=== PATIENT | male | born 2000 | race Caucasian/White ===

== ENCOUNTER 2023-08-20 20:04 | Emergency (ER) | payer OTHER, SELFPAY ==
[2023-08-20 20:35] VITALS: BP 120/78; PULSE 100; RESP 18; TEMP 36.1; O2SAT 98
--- NOTE | 2023-08-20 23:09 | ED_ITS ---
HPI - General Adult General Chief complaint: Unspecified Complaint, Adult Stated complaint: Faint, limbs tingling Time Seen by Provider: 08/20/23 23:02 History of Present Illness HPI narrative: 90 minutes ago, arms and legs went asleep. Tingle and odd sensation. felt like was going to pass out, buy not-lasted 90 minutes. had same thing happen yesterday. also reports having a headache for several days. felt like low blood pressure, but not Mild panic attack symptoms but think its just that 23-year-old young man presenting to the emergency department with concern of hot sensation in arms and legs that occurred around a couple of hours prior to this interview. Lasted about 90 minutes. He felt tingly and odd. This also occurred yesterday. Has had a little headache for a couple of days. He thinks what he is experiencing is similar to some mild panic attack symptoms in suspects that is the same but just concerned. Maybe lightheaded. No fever. No rashes. No new stressors. No chest pain or shortness of breath. Symptoms have mostly resolved now. There was no focal weakness. No visual change. No sense of palpitations/irregular heartbeat. No family history of arrhythmia is noted or sudden cardiac . Does have a history of asthma. Related Data Home Medications Medication Instructions Recorded Confirmed fluticasone 100 mcg-salmeterol 50 1 inh inhalation Q12H 08/30/22 08/30/22 mcg/dose blistr powdr for inhalation (Advair Diskus) Previous Rx's Medication Instructions Recorded albuterol sulfate 90 mcg/actuation 2 puff inhalation Q4-6H PRN 08/30/22 aerosol inhaler shortness of breath or wheezing #8.5 grams fluticasone 100 mcg-salmeterol 50 1 inh inhalation BID #60 ea 08/30/22 mcg/dose blistr powdr for inhalation (Advair Diskus) fluticasone propionate 110 2 puff inhalation BID #12 grams 08/30/22 mcg/actuation HFA aerosol inhaler (Flovent HFA) Allergies Allergy/AdvReac Type Severity Reaction Status Date / Time No Known Drug Allergies Allergy Verified 08/30/22 18:04 Review of Systems Status of ROS: Reports: 6 or more systems reviewed and unremarkable except as noted in History and below [facility] Medical History Asthma ?J45.909 - Unspecified asthma, uncomplicated (ICD-10) Social History Smoking Status: Light tobacco smoker Exam Narrative: Exam Narrative: Well-nourished. Very pleasant, personable. Pretty calm. Skin is warm and dry. Sensation appears to be intact. Moving all extremities without difficulty and with good strength. Heart with elevated rate in a regular rhythm. No murmur rub or gallop noted. Lungs are clear. Breath sounds throughout. No supraclavicular crepitus. Cranial nerves 2-12 intact. Extremities are well perfused without edema. Speech isn't pressured or slurred. Seems insightful. Const: Vital Signs, click to edit/add: Vital Signs - 24 hr 08/20/23 20:35 Temperature 97.0 F L Pulse Rate [Left P ulse Oximeter] 100 Respiratory Rate 18 Blood Pressure [Ri ght Upper Arm] 120/78 Pulse Oximetry 98 Oxygen Delivery Me thod Room Air Documenting provider has reviewed patient's vital signs: yes Course Vital Signs Vital signs: Initial Vital Signs Temperature 97.0 F L 08/20/23 20:35 Temperature Source Temporal Artery Scan 08/20/23 20:35 Pulse Rate 100 08/20/23 20:35 Pulse Rhythm Regular 08/20/23 20:35 Respiratory Rate 18 08/20/23 20:35 Blood Pressure 120/78 08/20/23 20:35 Blood Pressure Mean 92 08/20/23 20:35 Blood Pressure Position Sitting 08/20/23 20:35 Pulse Oximetry 98 08/20/23 20:35 Oxygen Delivery Method Room Air 08/20/23 20:35 Vital Signs Temperature 97.0 F L 08/20/23 20:35 Pulse Rate 100 08/20/23 20:35 Respiratory Rate 18 08/20/23 20:35 Blood Pressure 120/78 08/20/23 20:35 Pulse Oximetry 98 08/20/23 20:35 Oxygen Delivery Method Room Air 08/20/23 20:35 Temperature 97.0 F L 08/20/23 20:35 Pulse Rate 100 08/20/23 20:35 Respiratory Rate 18 08/20/23 20:35 Blood Pressure 120/78 08/20/23 20:35 Pulse Oximetry 98 08/20/23 20:35 Oxygen Delivery Method Room Air 08/20/23 20:35 Medical Decision Making MDM Narrative Medical decision making narrative: We did discuss differential which does include dysrhythmia, pneumothorax, CVA, attack of anxiety, does not appear to be an infectious problem. Did propose please checking an EKG for any evidence of dysrhythmia, cardiomegaly or maybe delta wave. EKG reassuring as below. I do think that given the constellation of symptoms and doubtful CVA, anxiety is probably the best explanation here. vitally well and stable See patient discharge plan Medical Records Medical records reviewed: Yes I reviewed the patient's medical records ECG Data Attestation: I personally reviewed and interpreted this ECG as follows: (Normal sinus rhythm without ischemic changes; no delta waves. Rate of 68) Discharge Plan Discharge Clinical Impression: Anxiety attack Patient Disposition: Home w/ Parent or Adult Condition: Improved Additional Instructions: Would emphasize that your EKG is reassuring. I do think a habit of regular heart pumping exercise particularly in the morning could be very beneficial. Try to get quality and regular sleep. Seems silly, but stay well-hydrated. Discussed a variety of coping mechanisms. Medications are another option. Sorry you have to find a therapist but might discuss this further with them or your primary. Pleasure talking with you. Prescriptions: No Action fluticasone propion-salmeterol [Advair Diskus] 100-50 mcg/dose blister with device 1 inh inhalation Q12H albuterol sulfate 90 mcg/actuation HFA aerosol inhaler 2 puff inhalation Q4-6H PRN (Reason: shortness of breath or wheezing) Qty: 8.5 0RF fluticasone propionate [Flovent HFA] 110 mcg/actuation HFA aerosol inhaler 2 puff inhalation BID Qty: 12 0RF fluticasone propion-salmeterol [Advair Diskus] 100-50 mcg/dose blister with device 1 inh inhalation BID Qty: 60 0RF Follow Up/Referrals: Provider,Not a Local [Primary Care Provider] - Stand Alone Forms: [employer] Info Instructions
== END 2023-08-21 00:09 | disposition home or self-care (01) ==
PROVIDERS: Emergency Provider Family Medicine
DX: F41.0 Panic disorder [episodic paroxysmal anxiety] (principal)
CPT/HCPCS: 82962; 93005; 99283; 99284

== ENCOUNTER 2023-11-08 14:04 | Outpatient (CLI) | payer OTHER, SELFPAY | END 2023-11-08 14:05 | disposition home or self-care (01) | PROVIDERS: Visit Provider Nurse Practitioner | DX: R20.2 Paresthesia of skin (principal); Z13.29 Encounter for screening for other suspected endocrine disorder | CPT/HCPCS: 84443 ==